=== PATIENT | male | born 1995 | race Caucasian/White ===

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

== ENCOUNTER 2017-01-01 09:38 | Emergency (ER) | payer OTHER ==
[~2017-01-01] VITALS: Ht 193 cm; Wt 100.4 kg
[~2017-01-01 09:38] MED LIST changes: +IBUP-1459 PO
[2017-01-01 09:42] VITALS: TEMP 36.7; Ht 193 cm; Wt 100.4 kg
[2017-01-01] MEDS ORDERED: KETOROLAC TROMETHAMINE 60 MG/2 ML VIAL IM STA (10:03)
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
--- NOTE | 2017-01-01 10:56 | DIAGNOSTIC IMAGING REPORT ---
LEFT HUMERUS MIN 2 VIEWS ROUTINE, LEFT ELBOW MIN 3 VIEWS ROUTINE CLINICAL HISTORY: fall. Left arm and elbow pain. COMPARISON STUDY: None. FINDINGS: No fracture or dislocation. Soft tissues are unremarkable. No elbow effusion. IMPRESSION: No fracture or dislocation within the left humerus or left elbow. Electronically signed by: Anibal Meehan M.D. 01/01/2017 10:55 AM Dictated Date/Time: 01/01/2017 10:52 AM
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
[2017-01-01 12:15] VITALS: BP 124/76; PULSE 74; O2SAT 99
== END 2017-01-01 12:15 | disposition home or self-care (01) ==
LOC: C.EDB 09:40
DX: T14.8 Other injury of unspecified body region (principal); W17.89XA Other fall from one level to another, initial encounter; K21.9 Gastro-esophageal reflux disease without esophagitis; F17.200 Nicotine dependence, unspecified, uncomplicated; Z87.81 Personal history of (healed) traumatic fracture; Z81.8 Family history of other mental and behavioral disorders

== ENCOUNTER 2017-05-13 12:41 | Emergency (ER) | payer OTHER ==
[~2017-05-13] VITALS: Ht 193 cm; Wt 101.0 kg
[2017-05-13 12:46] VITALS: Ht 193 cm; Wt 101.0 kg
[2017-05-13] MEDS ORDERED: ACETAMINOPHEN 500 MG TAB PO STA (13:07)
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
[2017-05-13 14:30] VITALS: BP 138/82; PULSE 78; TEMP 36.5; O2SAT 99
== END 2017-05-13 14:31 | disposition home or self-care (01) ==
LOC: EDBD 12:41 → C.EDB 12:46
DX: T76.11XA Adult physical abuse, suspected, initial encounter (principal); T14.8XXA Other injury of unspecified body region, initial encounter; W50.0XXA Accidental hit or strike by another person, initial encounter; F17.200 Nicotine dependence, unspecified, uncomplicated